=== PATIENT | male | born 1940 | race Caucasian/White ===

== ENCOUNTER 2018-09-21 14:49 | Emergency (ER) | payer MEDICARE ==
[~2018-09-21] VITALS: Ht 180.3 cm; Wt 95.2 kg
[2018-09-21] MEDS ORDERED: DONE10 PO (15:11)
[2018-09-21] MEDS ORDERED: LOSARTAN-HCTZ1 EACH PO (15:11)
[2018-09-21] MEDS ORDERED: Citalopram HBr10 MG PO (15:11)
[2018-09-21] MEDS ORDERED: NAPR500EC PO (15:12)
[2018-09-21] MEDS ORDERED: TAMS.4ER PO (15:12)
[2018-09-21 15:15] LABS: BASOPHILS ABSOLUTE AUTO 0.04 K/mm3 (0.00-0.23); BASOPHILS PERCENT AUTO 1 % (0-2); EOSINOPHILS ABSOLUTE AUTO 0.07 K/mm3 (0.00-0.68); EOSINOPHILS PERCENT AUTO 2 % (0-6); Hematocrit 35.9 % (37.0-53.0); Hemoglobin 11.9 g/dL (13.5-17.5); IMMATURE GRAN ABSOLUTE AUTO 0.01 K/mm3 (0.00-0.10); IMMATURE GRAN PERCENT AUTO 0 % (0-1); LYMPHOCYTES PERCENT AUTO 19 % (21-46); MONOCYTES ABSOLUTE AUTO 0.37 K/mm3 (0.16-1.47); MONOCYTES PERCENT AUTO 9 % (4-13); Mean Corpuscular HGB 29.6 pg (26.0-34.0); Mean Corpuscular HGB Conc 33.1 g/dL (31.5-36.5); Mean Corpuscular Volume 89 fL (80-100); Mean Platelet Volume 10.7 fL (9.1-12.4); NEUTROPHILS ABSOLUTE AUTO 3.02 K/mm3 (1.96-9.15); NEUTROPHILS PERCENT AUTO 70 % (41-73); Platelet Count 105 K/mm3 (150-400); RDW Coefficient Variation 13.2 % (11.7-14.2); RDW Standard Deviation 43.3 fL (35.1-46.3); Red Blood Cell Count 4.02 M/mm3 (4.30-5.90); White Blood Cell Count 4.31 K/mm3 (4.00-11.30)
[2018-09-21 15:26] LABS: Alanine Aminotransfer (ALT/SGP 10 U/L (12-78); Albumin, Blood 3.4 g/dL (3.4-5.0); Albumin/Globulin Ratio 1.4 (0.8-1.8); Alk Phos 51 U/L (50-136); Anion Gap 7 mmol/L (6-16); Aspartate Aminotrans (AST/SGOT 22 U/L (12-37); Bilirubin, Total 0.9 mg/dL (0.1-1.0); Blood Urea Nitrogen 10 mg/dL (8-24); Bun/Creatinine Ratio 8.1 (12.0-20.0); CO2, Blood 28 mmol/L (21-32); Calcium, Blood 8.1 mg/dL (8.5-10.1); Chloride, Blood 101 mmol/L (98-108); Creatinine, Blood 1.24 mg/dL (0.60-1.20); Globulin, Blood 2.5 g/dL (2.2-4.0); Glomerular Filtration Rate >60 (60-); Glucose, Blood 90 mg/dL (70-99); Potassium, Blood 3.5 mmol/L (3.5-5.5); Sodium, Blood 136 mmol/L (136-145); Total Protein, Blood 5.9 g/dL (6.4-8.2)
== END 2018-09-21 16:31 | disposition home or self-care (01) ==
LOC: ER 14:49
PROVIDERS: Emergency Medicine
DX: R42 Dizziness and giddiness (principal); Z79.899 Other long term (current) drug therapy
CPT/HCPCS: 80053; 85025; 93005; 93010; 99284-25

== ENCOUNTER → 2021-10-06 | Emergency (ER) | payer MEDICARE, OTHER ==
[~2021-10-06] VITALS: Ht 210.8 cm; Wt 104.3 kg
[~2021-10-06] MED LIST: Citalopram HBr10 MG PO; DONE10 PO; LOSARTAN-HCTZ1 EACH PO; NAPR500EC PO; TAMS.4ER PO
[2021-10-06 18:11] LABS: BASOPHILS ABSOLUTE AUTO 0.03 K/mm3 (0.00-0.23); BASOPHILS PERCENT AUTO 0 % (0-2); EOSINOPHILS ABSOLUTE AUTO 0.01 K/mm3 (0.00-0.68); EOSINOPHILS PERCENT AUTO 0 % (0-6); Hematocrit 39.3 % (37.0-53.0); Hemoglobin 12.4 g/dL (13.5-17.5); IMMATURE GRAN ABSOLUTE AUTO 0.06 K/mm3 (0.00-0.10); IMMATURE GRAN PERCENT AUTO 0 % (0-1); LYMPHOCYTES ABSOLUTE AUTO 0.49 K/mm3 (0.84-5.20); LYMPHOCYTES PERCENT AUTO 4 % (21-46); MONOCYTES ABSOLUTE AUTO 0.89 K/mm3 (0.16-1.47); MONOCYTES PERCENT AUTO 7 % (4-13); Mean Corpuscular HGB 28.8 pg (26.0-34.0); Mean Corpuscular HGB Conc 31.6 g/dL (31.5-36.5); Mean Corpuscular Volume 91 fL (80-100); Mean Platelet Volume 12.5 fL (9.1-12.4); NEUTROPHILS ABSOLUTE AUTO 12.12 K/mm3 (1.96-9.15); NEUTROPHILS PERCENT AUTO 89 % (41-73); Platelet Count 95 K/mm3 (150-400); RDW Coefficient Variation 13.5 % (11.7-14.2); RDW Standard Deviation 45.6 fL (35.1-46.3)
[2021-10-06 18:26] LABS: Albumin, Blood 2.9 g/dL (3.4-5.0); Albumin/Globulin Ratio 0.9 (0.8-1.8); Bilirubin, Total 1.6 mg/dL (0.1-1.0); Calcium, Blood 8.5 mg/dL (8.5-10.1); Creatinine, Blood 0.81 mg/dL (0.60-1.20); Globulin, Blood 3.2 g/dL (2.2-4.0); Potassium, Blood 3.8 mmol/L (3.5-5.5); Total Protein, Blood 6.1 g/dL (6.4-8.2)
[2021-10-06 21:51] LABS: Source, Urine Clean Catch
[2021-10-06 21:53] LABS: Bilirubin, Urine Neg (Neg); Blood, Urine 4+ (Neg); Glucose Qualitative, Urine Neg (Neg); Ketones, Urine 4+ (Neg); Leukocyte Esterase, Urine Neg (Neg); Nitrite, Urine Neg (Neg); Protein, Urine 2+ (Neg); Specific Gravity, Urine 1.025 (1.003-1.022); Urobilinogen, Urine 2+ (Normal)
[2021-10-06 22:05] LABS: Appearance, Urine Clear (Clear); Color, Urine Yellow (P-Yellow)
[2021-10-06 22:06] LABS: Amorphous Light (0-Heavy); Bacteria Few /hpf; Red Blood Cells, Urine Not Seen /hpf (0-2); Squamous Epithelial Cells Few /hpf (Few); White Blood Cells, Urine Not Seen /hpf (0-5)
== END ==
LOC: ER 17:20
PROVIDERS: Student in an Organized Health Care Education/Training Program
DX: R55 Syncope and collapse (principal); I10 Essential (primary) hypertension; Z79.899 Other long term (current) drug therapy
CPT/HCPCS: 36415; 70450; 70486; 71045; 80053; 81001; 84484; 85025; 93005; 93010

== ENCOUNTER 2022-02-05 20:07 | Inpatient (IN) | payer MEDICARE, OTHER ==
[~2022-02-05] VITALS: Ht 180.3 cm; Wt 96.2 kg
[2022-02-05 20:45] LABS: BASOPHILS ABSOLUTE AUTO 0.03 K/mm3 (0.00-0.23); BASOPHILS PERCENT AUTO 0 % (0-2); EOSINOPHILS ABSOLUTE AUTO 0.08 K/mm3 (0.00-0.68); EOSINOPHILS PERCENT AUTO 1 % (0-6); Hematocrit 41.7 % (37.0-53.0); Hemoglobin 13.6 g/dL (13.5-17.5); IMMATURE GRAN ABSOLUTE AUTO 0.02 K/mm3 (0.00-0.10); IMMATURE GRAN PERCENT AUTO 0 % (0-1); LYMPHOCYTES ABSOLUTE AUTO 0.69 K/mm3 (0.84-5.20); LYMPHOCYTES PERCENT AUTO 8 % (21-46); MONOCYTES ABSOLUTE AUTO 1.02 K/mm3 (0.16-1.47); MONOCYTES PERCENT AUTO 12 % (4-13); Mean Corpuscular HGB 29.6 pg (26.0-34.0); Mean Corpuscular HGB Conc 32.6 g/dL (31.5-36.5); Mean Corpuscular Volume 91 fL (80-100); Mean Platelet Volume 12.6 fL (9.1-12.4); NEUTROPHILS ABSOLUTE AUTO 6.86 K/mm3 (1.96-9.15); NEUTROPHILS PERCENT AUTO 79 % (41-73); Platelet Count 103 K/mm3 (150-400); RDW Coefficient Variation 13.7 % (11.7-14.2); RDW Standard Deviation 45.7 fL (35.1-46.3)
[2022-02-05] MEDS ORDERED: Hydrochloroth12.5 MG PO (20:54)
[2022-02-05] MEDS ORDERED: LOSA50 PO (20:54)
[2022-02-05 20:55] LABS: Albumin, Blood 3.1 g/dL (3.4-5.0); Albumin/Globulin Ratio 0.8 (0.8-1.8); Bilirubin, Total 1.6 mg/dL (0.1-1.0); Bun/Creatinine Ratio 32.6 (12.0-20.0); Calcium, Blood 8.8 mg/dL (8.5-10.1); Creatinine, Blood 0.71 mg/dL (0.60-1.20); Globulin, Blood 3.7 g/dL (2.2-4.0); Potassium, Blood 3.8 mmol/L (3.5-5.5); Total Protein, Blood 6.8 g/dL (6.4-8.2)
[2022-02-05] MEDS ORDERED: MEMA10 PO (20:55)
[2022-02-05 22:24] LABS: Source, Urine Clean Catch
[2022-02-05 22:38] LABS: Bilirubin, Urine Neg (Neg); Blood, Urine 2+ (Neg); Color, Urine Yellow (P-Yellow); Glucose Qualitative, Urine Neg (Neg); Ketones, Urine 3+ (Neg); Leukocyte Esterase, Urine Neg (Neg); Nitrite, Urine Neg (Neg); Protein, Urine 1+ (Neg); Urobilinogen, Urine 2+ (Normal)
[2022-02-05 22:54] LABS: Appearance, Urine Clear (Clear)
[2022-02-05 23:04] LABS: Amorphous Light (0-Heavy); Bacteria Few /hpf; Mucus Light (0-Heavy); Red Blood Cells, Urine 0-2 /hpf (0-2); Squamous Epithelial Cells Few /hpf (Few); White Blood Cells, Urine 0-2 /hpf (0-5)
[2022-02-06 01:08] LABS: Influenza A, PCR NEGATIVE (NEGATIVE); Influenza B, PCR NEGATIVE (NEGATIVE); Resp Syncytial Virus, PCR NEGATIVE (NEGATIVE); SARS-Cov-2 (COVID-19) PCR, MMC NEGATIVE (NEGATIVE)
[2022-02-06 08:14] LABS: BASOPHILS ABSOLUTE AUTO 0.03 K/mm3 (0.00-0.23); BASOPHILS PERCENT AUTO 0 % (0-2); EOSINOPHILS ABSOLUTE AUTO 0.09 K/mm3 (0.00-0.68); EOSINOPHILS PERCENT AUTO 1 % (0-6); Hemoglobin 12.7 g/dL (13.5-17.5); IMMATURE GRAN ABSOLUTE AUTO 0.01 K/mm3 (0.00-0.10); IMMATURE GRAN PERCENT AUTO 0 % (0-1); LYMPHOCYTES ABSOLUTE AUTO 0.71 K/mm3 (0.84-5.20); LYMPHOCYTES PERCENT AUTO 10 % (21-46); MONOCYTES ABSOLUTE AUTO 0.93 K/mm3 (0.16-1.47); MONOCYTES PERCENT AUTO 13 % (4-13); Mean Corpuscular HGB 29.3 pg (26.0-34.0); Mean Corpuscular HGB Conc 31.8 g/dL (31.5-36.5); Mean Corpuscular Volume 92 fL (80-100); Mean Platelet Volume 12.8 fL (9.1-12.4); NEUTROPHILS ABSOLUTE AUTO 5.18 K/mm3 (1.96-9.15); NEUTROPHILS PERCENT AUTO 75 % (41-73); Platelet Count 123 K/mm3 (150-400); RDW Coefficient Variation 13.6 % (11.7-14.2); RDW Standard Deviation 46.5 fL (35.1-46.3); Red Blood Cell Count 4.33 M/mm3 (4.30-5.90); White Blood Cell Count 6.95 K/mm3 (4.00-11.30)
[2022-02-06 08:29] LABS: Bun/Creatinine Ratio 35.1 (12.0-20.0); Calcium, Blood 8.2 mg/dL (8.5-10.1); Creatinine, Blood 0.63 mg/dL (0.60-1.20); Potassium, Blood 3.7 mmol/L (3.5-5.5)
--- NOTE | 2022-02-06 18:04 | NUR ---
SHIFT SUMMARY PT AXO X1, PLEASANT AND COOPERATIVE WITH CARE. DENIES BEING SICK AND DOESN'T KNOW WHY HE'S HERE. VSS. IV PATENT AND SALINE LOCKED. BED IN LOW POSITION, CALL LIGHT WITHIN REACH. INITIAL ADMISSION INTERVENTION AND HISTORY DIFFICULT TO COMPLETE R/T PATIENT BEING A POOR HISTORIAN AND UNABLE TO REACH CAREGIVER OVER THE PHONE. MARICRUZ HER ASSISTED THIS NURSE WITH ADMISSION. TAMMY RAPP COMPLETED, SEE ORDERS. BED IN LOW POSITION, CALL LIGHT WITHIN REACH, BED ALARM ON.
[2022-02-06] MEDS ORDERED: CARVEDILOL6.25 MG PO (20:15)
--- NOTE | 2022-02-07 06:42 | NUR ---
SHIFT SUMMARY A/O TO SELF ONLY, PLEASANTLY CONFUSED BUT DIFFICULT TO REDIRECT. ATTEMPTING TO GET OOB, HIGH FALL RISK, AGUSTÍN AND BED ALARM ON FOR SAFETY. DENIES PAIN OR SOB. PT RIPPED OUT 2 IV'S DURING THIS SHIFT. BED IN LOWEST POSITION WITH CALL LIGHT IN REACH. WILL CONTINUE TO MONITOR AND REPORT TO ONCOMING RN.
--- NOTE | 2022-02-07 07:15 | NUR ---
ASSUMED CARE OF PATIENT PATIENT RESTING IN BED, APPEARS TO BE COMFORTABLE AND SLEEPING AT THIS TIME. CALL LIGHT IN REACH.
[2022-02-07 08:21] LABS: Hematocrit 37.5 % (37.0-53.0); Hemoglobin 11.8 g/dL (13.5-17.5); Mean Corpuscular HGB 28.9 pg (26.0-34.0); Mean Corpuscular HGB Conc 31.5 g/dL (31.5-36.5); Mean Corpuscular Volume 92 fL (80-100); Mean Platelet Volume 11.5 fL (9.1-12.4); Platelet Count 126 K/mm3 (150-400); RDW Coefficient Variation 13.4 % (11.7-14.2); RDW Standard Deviation 45.6 fL (35.1-46.3); Red Blood Cell Count 4.08 M/mm3 (4.30-5.90); White Blood Cell Count 6.12 K/mm3 (4.00-11.30)
[2022-02-07 08:41] LABS: Albumin, Blood 2.6 g/dL (3.4-5.0); Anion Gap 4 mmol/L (6-16); Blood Urea Nitrogen 26 mg/dL (8-24); Bun/Creatinine Ratio 33.2 (12.0-20.0); CO2, Blood 32 mmol/L (21-32); Calcium, Blood 8.4 mg/dL (8.5-10.1); Chloride, Blood 109 mmol/L (98-108); Creatinine, Blood 0.78 mg/dL (0.60-1.20); Glomerular Filtration Rate 90 (60-); Glucose, Blood 88 mg/dL (70-99); Phosphorus, Blood 2.8 mg/dL (2.5-4.9); Potassium, Blood 3.2 mmol/L (3.5-5.5); Sodium, Blood 145 mmol/L (136-145)
--- NOTE | 2022-02-07 11:30 | NUR ---
MD AT BEDSIDE. DISCUSSED THAT PATIENT PULLED OUT 2 IV'S DURING NOC SHIFT, MD STATED IV ABX CAN BE CHANGED TO ORAL ABX AND SHE WILL "TAKE A LOOK & UPDATE". NO ORDERS AT THIS TIME. ABX SCHEDULED FOR 2100.
--- NOTE | 2022-02-07 16:08 | NUR ---
SHIFT SUMMARY NO ACUTE CHANGES THIS SHIFT. PATIENT VERY PLEASENT, ALERT, ONLY ORIENTED TO HIMSELF. COOPERATIVE WITH CARE & WITH PT & OT. AGUSTÍN VEST REMAINS IN PLACE FOR PATIENTS SAFETY, X4 SIDERAILS UP WHILE PATIENT IN BED, CHAIR ALARM WHILE PATIENT IN CHAIR. INCONT OF URINE T/O SHIFT, ATTENDS IN PLACE, CHANGED NEEDED. EATING & DRINKING WELL. PATIENT TALKS TO HIMSELF AND CARRIES ON CONVERSATIONS WITH HIMSELF, HOWEVER, HAS A DIFFICULT TIME UNDERSTANDING STAFF AND FOLLOWING CONVERSATION WITH STAFF. CALL LIGHT IN REACH, VERBALIZES UNDERSTANDING OF CALL LIGHT, HOWEVER, HAS NOT USED THIS SHIFT. WILL REPORT TO ONCERNST RN AT 1900.
--- NOTE | 2022-02-07 19:02 | NUR ---
PATIENTS CAREGIVER HEIDI CAME IN AND VISITED WITH PATIENT. THIS RN SPOKE WITH HEIDI AND HEIDI STATED PATIENT HAS HAD DEMENTIA FOR ABOUT 10 YEARS, THE LAST COUPLE YEARS HE HAS PROGRESSED, TALKS TO HIMSELF & AN "IMAGINARY FRIEND JUSTA" OFTEN, AND HAS BEEN INCONTINENT OF URINE FOR ABOUT THE PAST MONTH. HEIDI FEELS THAT PATIENTS CURRENT STATE IS SLIGHTLY WORSE THAN NORMAL, HOWEVER PATIENT HAS BEEN SUNDOWNING FOR SOME TIME NOW AT HOME. HEIDI STATES PATIENT LIVES IN HIS OWN HOME AND HE COMES IN TO TAKE CARE OF HIM AND ANOTHER LADY DAILY. HEIDI STATES PATIENT WAS SLIGHLTY UNSTEADY ON FEET BUT HAD NEVER ACTUALLY FALLEN.
--- NOTE | 2022-02-08 05:27 | NUR ---
SHIFT SUMMARY: Pt A/Ox1 and not call light appropriate. Bed alarms utilized. Nichole vest on for patient safety as he is very impulsive and a high fall risk. He is pleasant and cooperative with staff. He denies pain, nausea, SOB. This morning pt had high blood pressures- he had no IV access after multiple attempts provider paged for an oral dose of hydralazine. this was ordered and handbook writer gave him medication. pt mentioned having chest pain, when asking further questions about it patient denied chest pain but stated his L arm hurt. Provider notified. EKG and troponin labs drawn. Pending. Otherwise HR was 62 NSR, and o2 99%.
--- NOTE | 2022-02-08 09:26 | NUR ---
Patient awake, confused but calm. took morning medications. Does not want breakfast. Patient was released from restraints at 0900. Bed alarm is on. a voice mail was left with dr. Deutsch notifing her of the release and she returned my call approving of the release. no family listed on face sheet to call.
--- NOTE | 2022-02-08 18:08 | NUR ---
PATIENT WAS RELEASED FROM RESTRAINT THIS AM. HE HAS BEEN CALM AND REMAINING IN HIS BED. HE USED THE URINAL IN BED DURING THIS SHIFT. EVENING TIME APPEARS TO HAVE INCREASED AGITATION, WANTING TO LEAVE. HE WAS REFUSING HIS ORAL LEVAQUIN BUT WITH MUCH PERSISTANCE HE TOOK THE ORAL MEDICATION. HE IS TALKING TO [place] AND JUSTA, WHO ARE NOT PRESENT. AN ENTIRE CONVERSATION IS TAKING PLACE ABOUT HOW HE IS GOING TO GET OUT OF HERE. PATIENT YELLS OUT RATHER THAN USING HIS CALL LIGHT. HE HAS NOT EATEN MUCH- ZERO LUNCH AND IS REFUSING DINNER BUT ATTEMPTS TO HAVE HIS EAT ARE HAPPENING AT THIS TIME. LS HAVE SOME INSPIRATORY WHEEZING. COUGH IS PRESENT AND SOUNDS CONGESTED BUT PATIENT STATES "I AM FINE, i DON'T NEED TO BE HERE, NO ONE KNOWS WHAT THE f IS GOING ON. Justa, THEY WON'T LET ME OUT, I DON'T WANT TO BE IN HERE. (JUSTA IS NOT PRESENT).
--- NOTE | 2022-02-09 05:57 | NUR ---
SHIFT SUMMARY: Pt A/Ox1. Bed alarms on and 3 side rails up for safety. He remained confused throughout the shift. He can be heard from the hallways having conversations with people that arent actually there. He is pleasant and cooperative with staff. He had no c/o pain overnight.
[2022-02-09] MEDS ORDERED: Acetaminophen650 M1 PO (16:46)
[2022-02-09] MEDS ORDERED: AMLO5 PO (16:46)
[2022-02-09] MEDS ORDERED: VISBIOME 112.51 EACH PO (16:47)
[2022-02-09] MEDS ORDERED: LEVO750 PO (16:47)
--- NOTE | 2022-02-09 17:17 | NUR ---
DISCHARGE PT A&OX1 @ TIME OF D/C-[facility] [employer] END FINDER JENNI CALLED AND PROVIDED W/ DC DIRECTION. CAREGIVER MEETING TRANSPORT @ HOME. VSS. [facility]. MEDS FAXED TO [facility]. FOLLOW UP ON SATURDAY W/ PCP.
[2022-02-13] MEDS ORDERED: CITALOPRAM HBR10 MG PO (15:49)
[2022-02-13] MEDS ORDERED: HYDCHL25 PO (15:51)
[2022-02-13] MEDS ORDERED: CARV6.25 PO (15:52)
[2022-02-13] MEDS ORDERED: DONEPEZIL HCL10 MG PO (15:53)
== END 2022-02-09 17:18 | disposition home health service (06) | DRG 193 ==
LOC: ER 20:07 → ERHOLD 02-06 00:34 → MEDS 02-06 00:34
PROVIDERS: Emergency Medicine; Internal Medicine; Student in an Organized Health Care Education/Training Program; ADMIT Family Medicine
DX: J18.9 Pneumonia, unspecified organism (principal); G92.8 Other toxic encephalopathy; A52.17 General paresis; D69.6 Thrombocytopenia, unspecified; E87.6 Hypokalemia; N40.0 Benign prostatic hyperplasia without lower urinary tract symptoms; F41.9 Anxiety disorder, unspecified; F32.A Depression, unspecified; I10 Essential (primary) hypertension; H10.9 Unspecified conjunctivitis; Z90.49 Acquired absence of other specified parts of digestive tract; Z20.822 Contact with and (suspected) exposure to COVID-19; Z79.899 Other long term (current) drug therapy
CPT/HCPCS: 0241U; 36415; 70450; 71045; 80048; 80053; 80069; 81001; 83605; 84484; 85025; 85027; 92526; 92610; 93005; 93010; 97112; 97116; 97162; 97165; 97530; 97535; 99285-25; A9270; J0456; J0696; J1650; J7030; J7050